=== PATIENT | male | born 1960 | race Caucasian/White ===

== ENCOUNTER → 2020-09-27 09:32 | Outpatient (BNVA) | payer MEDICARE, SELFPAY | PROVIDERS: Family Provider Family Medicine; PCP Family Medicine; Referring Provider Urology; Visit Provider Urology | DX: R39.198 Other difficulties with micturition (principal); N48.0 Leukoplakia of penis; N52.1 Erectile dysfunction due to diseases classified elsewhere | CPT/HCPCS: 81003 ==

== ENCOUNTER → 2021-11-07 10:59 | Outpatient (BNVA) | payer MEDICARE, SELFPAY | PROVIDERS: Family Provider Family Medicine; PCP Family Medicine; Visit Provider Nurse Practitioner Family | DX: Z20.822 Contact with and (suspected) exposure to COVID-19 (principal) | CPT/HCPCS: 87635 ==

== ENCOUNTER 2022-04-21 15:32 | Emergency (ER) | payer MEDICARE, SELFPAY ==
[2022-04-21 15:42] VITALS: BP 138/87; PULSE 72; RESP 16; TEMP 36.3; O2SAT 97; BMI 35.2
--- NOTE | 2022-04-21 15:46 | XRR_ITS ---
PROCEDURE INFORMATION: Exam: XR Left Shoulder Exam date and time: 04/21/2022 4:42 PM Age: 61 years old Clinical indication: Injury or trauma; Fall; Blunt trauma (contusions or hematomas); Shoulder; Left; Additional info: Fall, left shoulder pain TECHNIQUE: Imaging protocol: Radiologic exam of the Left shoulder. Views: 2 or more views. COMPARISON: CR Shoulder 2+ views LEFT* [id number] 01/23/2017 9:34 PM FINDINGS: Tubes, catheters and devices: There is a cardiac AICD via left subclavian approach. Bones/joints: Stable mild degenerative changes at the left shoulder. No acute fracture. No dislocation. Normal bone mineralization. Small bony densities adjacent to the posterior aspect of the left greater tuberosity, small avulsion fractures cannot be ruled out. Soft tissues: No soft tissue swelling. No radiopaque foreign body. XR/XR shoulder LT min 2V* [id number] IMPRESSION: 1. Small bony densities adjacent to the posterior aspect of the left greater tuberosity, small avulsion fractures cannot be ruled out. 2. Stable mild degenerative changes at the left shoulder. 3. Incidental/nonacute findings are listed in the report.
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
[2022-04-21 18:18] VITALS: PULSE 75; RESP 16; O2SAT 96
--- NOTE | 2022-04-22 11:30 | DCPLANNER ---
Addendum entered by Ya Oropeza 05/13/22 11:15: Patient had a follow up appointment scheduled for 04.26.22 with ortho - patient did not attend appointment. Original Note: biomass power plant manager had message to schedule a follow up appointment for patient with ortho. biomass power plant manager sent patients information to the front office staff at ortho. Patients information will be printed and reviewed. Clinic will call patient with appointment information.
== END 2022-04-21 18:19 | disposition home or self-care (01) ==
PROVIDERS: Emergency Provider Physician Assistant; PCP Family Medicine
DX: S42.255A Nondisplaced fracture of greater tuberosity of left humerus, initial encounter for closed fracture (principal); Z79.84 Long term (current) use of oral hypoglycemic drugs; Z79.82 Long term (current) use of aspirin; E11.9 Type 2 diabetes mellitus without complications; W18.09XA Striking against other object with subsequent fall, initial encounter
CPT/HCPCS: 29240; 73030; 99283

== ENCOUNTER → 2024-07-03 14:36 | Outpatient (BNVA) | payer MEDICARE, SELFPAY | PROVIDERS: Visit Provider Family Medicine | DX: R05.9 Cough, unspecified (principal) | CPT/HCPCS: 87426 ==